=== PATIENT | male | born 1955 | race Caucasian/White ===

== ENCOUNTER 2022-09-26 12:41 | Outpatient (CLI) | payer MEDICARE, OTHER | END 2022-09-26 12:42 | disposition home or self-care (01) | LOC: CSHCT 12:41 | PROVIDERS: ATTEND Otolaryngology Plastic Surgery within the Head & Neck | DX: H71.91 Unspecified cholesteatoma, right ear (principal); Z98.890 Other specified postprocedural states; H74.93 Unspecified disorder of middle ear and mastoid, bilateral | CPT/HCPCS: 70480 ==